=== PATIENT | male | born 1950 | race Asian ===

== ENCOUNTER 2021-03-04 10:48 | Emergency (ER) | payer MEDICARE, MEDICAID ==
[~2021-03-04] VITALS: Ht 152.4 cm; Wt 63.5 kg
[2021-03-04] MEDS ORDERED: TEMA15CA5 PO (10:53)
[2021-03-04] MEDS ORDERED: TOPUD PO (10:53)
[2021-03-04 10:54] VITALS: BP 134/86
[2021-03-04] MEDS ORDERED: ACETAMINOPHEN 325MG TABLET PO STA (12:22)
[2021-03-04] MEDS ORDERED: VISCOUS LIDOCAINE 2% 15 ML UDC PO ONE (12:30)
[2021-03-04 13:25] LABS: BASOPHILS % 0.7 % (0.0-2.0); EOSINOPHILS % 0.5 % (0.0-5.0); HEMATOCRIT. 48.6 % (42.0-52.0); HEMOGLOBIN. 16.2 g/dL (14.0-18.0); LYMPHOCYTES % 23.8 % (20.0-50.0); MEAN CORPUSCULAR HEMOGLOBIN 31.1 pg (28.0-32.0); MEAN CORPUSCULAR VOLUME 93.5 fL (80.0-94.0); MEAN PLATELET VOLUME 8.5 fl (7.4-10.4); MONOCYTES % 9.8 % (2.0-8.0); NEUTROPHILS % 65.2 % (40.0-76.0); PLATELET 175 x1000/uL (130-400); RED CELL DISTRIBUTION WIDTH 14.2 % (11.6-14.6)
[2021-03-04 13:36] LABS: CHLORIDE 106 mEq/L (98-107)
== END 2021-03-04 18:25 ==
LOC: ER 11:19
DX: R07.89 Other chest pain (principal); R07.0 Pain in throat; F31.9 Bipolar disorder, unspecified; I10 Essential (primary) hypertension; F20.9 Schizophrenia, unspecified
CPT/HCPCS: 36415; 71045; 80053; 83880; 84484; 85025; 93005; 99285

== ENCOUNTER 2021-11-10 16:28 | Inpatient (IN) | payer MEDICARE, MEDICAID ==
[~2021-11-10] VITALS: Ht 167.6 cm; Wt 75.7 kg
[~2021-11-10 16:28] MED LIST: TEMA15CA5 PO; TOPUD PO
[2021-11-10] MEDS ORDERED: ONDANSETRON HCL 4MG/2ML INJ IV STA (17:35)
[2021-11-10] MEDS ORDERED: MORPHINE SULFATE 4 MG/ML CPJ (NOT FOR IM USE) IV STA (17:35)
[2021-11-10] MEDS ORDERED: NITROGLYCERIN OINT 1GM/INCH UDPKT TD ONE (17:45)
[2021-11-10] MEDS ORDERED: ASPIRIN 81MG TABLET PO ONE (17:45)
[2021-11-10 18:53] LABS: EOSINOPHILS % 1.9 % (0.0-5.0); HEMATOCRIT. 43.6 % (42.0-52.0); HEMOGLOBIN. 14.6 g/dL (14.0-18.0); LYMPHOCYTES % 35.9 % (20.0-50.0); MEAN CORPUSCULAR HEMOGLOBIN 30.2 pg (28.0-32.0); MEAN CORPUSCULAR VOLUME 90.1 fL (80.0-94.0); MEAN PLATELET VOLUME 8.6 fl (7.4-10.4); MONOCYTES % 11.9 % (2.0-8.0); NEUTROPHILS % 49.3 % (40.0-76.0); PLATELET 186 x1000/uL (130-400); RED BLOOD CELL COUNT 4.84 mill/uL (4.7-6.1); RED CELL DISTRIBUTION WIDTH 13.9 % (11.6-14.6)
[2021-11-10] MEDS ORDERED: SODIUM CHLORIDE 0.9% 500 ML IV ONE (19:00)
[2021-11-10 19:03] LABS: CHLORIDE 104 mEq/L (98-107)
[2021-11-10 19:08] LABS: *AMPHETAMINES SCREEN URINE NEGATIVE (NEGATIVE); *BARBITURATES SCREEN URINE NEGATIVE (NEGATIVE); *BENZODIAZEPINES SCREEN URINE NEGATIVE (NEGATIVE); *COCAINE SCREEN URINE NEGATIVE (NEGATIVE); CANNABINOID URINE SCREEN NEGATIVE (NEGATIVE); METHADONE URINE SCREEN NEGATIVE (NEGATIVE); OPIATES URINE SCREEN NEGATIVE (NEGATIVE); PHENCYCLIDINE URINE SCREEN NEGATIVE (NEGATIVE)
[2021-11-10 19:26] LABS: ETHANOL BLOOD < 10 mg/dL
[2021-11-11] MEDS: ASPIRIN 81MG EC TABLET PO SCH (08:37)
[2021-11-11] MEDS: ENOXAPARIN 40MG/0.4ML SYR SUBCUT SCH (08:38)
[2021-11-11] MEDS: NITROGLYCERIN OINT 1GM/INCH UDPKT TD SCH ×3 (08:39→22:00)
[2021-11-11 11:20] VITALS: BP 135/66
[2021-11-11 11:59] LABS: BASOPHILS % 0.3 % (0.0-2.0); EOSINOPHILS % 0.2 % (0.0-5.0); HEMATOCRIT. 47.9 % (42.0-52.0); LYMPHOCYTES % 16.3 % (20.0-50.0); MEAN CORPUSCULAR HEMOGLOBIN 30.2 pg (28.0-32.0); MEAN CORPUSCULAR VOLUME 90.3 fL (80.0-94.0); MEAN PLATELET VOLUME 8.8 fl (7.4-10.4); MONOCYTES % 8.2 % (2.0-8.0); PLATELET 210 x1000/uL (130-400); RED CELL DISTRIBUTION WIDTH 14.3 % (11.6-14.6)
[2021-11-11 12:00] VITALS: BP 133/85
[2021-11-11 12:06] LABS: CHLORIDE 102 mEq/L (98-107)
[2021-11-11 12:16] LABS: HDL CHOLESTEROL 57 mg/dL (40-59); LDL CHOLESTEROL 67 mg/dL (5-100)
[2021-11-11] MEDS ORDERED: ABIL5 PO (13:33)
[2021-11-11] MEDS ORDERED: ATOR20TA PO (13:33)
[2021-11-11] MEDS ORDERED: AMLO10TA4 PO (13:36)
[2021-11-11] MEDS ORDERED: DEPER5 PO (13:36)
[2021-11-11] MEDS ORDERED: ACETAMINOPHEN 325MG TABLET PO PRN (14:30)
[2021-11-11] MEDS ORDERED: NITROGLYCERIN 0.4MG TABLET SL SL PRN (14:30)
[2021-11-11 15:59] VITALS: BP 130/84
[2021-11-11 20:00] VITALS: BP 141/86
[2021-11-11] MEDS: ARIPIPRAZOLE 5MG TABLET PO SCH (21:03)
[2021-11-11] MEDS: DIVALPROEX SODIUM 500MG ER TABLET PO SCH (21:03)
[2021-11-11] MEDS: ATORVASTATIN CALCIUM 40MG TABLET PO SCH (21:03)
[2021-11-12] VITALS: BP 117/68
[2021-11-12] MEDS: NITROGLYCERIN OINT 1GM/INCH UDPKT TD SCH (06:00)
[2021-11-12 06:49] LABS: CHLORIDE 103 mEq/L (98-107)
[2021-11-12 07:30] LABS: BASOPHILS % 0.8 % (0.0-2.0); EOSINOPHILS % 1.5 % (0.0-5.0); HEMATOCRIT. 42.3 % (42.0-52.0); HEMOGLOBIN. 14.4 g/dL (14.0-18.0); LYMPHOCYTES % 32.6 % (20.0-50.0); MEAN CORPUSCULAR HEMOGLOBIN 30.5 pg (28.0-32.0); MEAN CORPUSCULAR VOLUME 89.6 fL (80.0-94.0); MONOCYTES % 14.6 % (2.0-8.0); NEUTROPHILS % 50.5 % (40.0-76.0); PLATELET 177 x1000/uL (130-400); RED BLOOD CELL COUNT 4.72 mill/uL (4.7-6.1); RED CELL DISTRIBUTION WIDTH 13.8 % (11.6-14.6)
[2021-11-12 08:00] VITALS: BP 132/81
[2021-11-12] MEDS: DOCUSATE SODIUM 100MG CAPSULE PO SCH (09:00)
[2021-11-12] MEDS: ENOXAPARIN 40MG/0.4ML SYR SUBCUT SCH (09:09)
[2021-11-12] MEDS: AMLODIPINE 10MG TABLET PO SCH (09:10)
[2021-11-12] MEDS: ASPIRIN 81MG EC TABLET PO SCH (09:10)
[2021-11-12 12:00] VITALS: BP 130/71
[2021-11-12 16:00] VITALS: BP 134/77
[2021-11-12 20:00] VITALS: BP 106/65
[2021-11-12] MEDS: DIVALPROEX SODIUM 500MG ER TABLET PO SCH (20:44)
[2021-11-12] MEDS: ARIPIPRAZOLE 5MG TABLET PO SCH (20:44)
[2021-11-12] MEDS: ATORVASTATIN CALCIUM 40MG TABLET PO SCH (20:44)
[2021-11-12] MEDS ORDERED: NITROGLYCERIN OINT 1GM/INCH UDPKT TD SCH (21:00)
[2021-11-13 00:11] VITALS: BP 103/70
[2021-11-13 04:00] VITALS: BP 163/70
[2021-11-13 05:33] VITALS: BP 163/70
[2021-11-13 06:32] LABS: BASOPHILS % 0.9 % (0.0-2.0); EOSINOPHILS % 2.2 % (0.0-5.0); HEMATOCRIT. 42.3 % (42.0-52.0); HEMOGLOBIN. 14.5 g/dL (14.0-18.0); LYMPHOCYTES % 37.9 % (20.0-50.0); MEAN CORPUSCULAR HEMOGLOBIN 30.7 pg (28.0-32.0); MEAN CORPUSCULAR VOLUME 89.5 fL (80.0-94.0); MONOCYTES % 12.9 % (2.0-8.0); NEUTROPHILS % 46.1 % (40.0-76.0); PLATELET 168 x1000/uL (130-400); RED BLOOD CELL COUNT 4.73 mill/uL (4.7-6.1); RED CELL DISTRIBUTION WIDTH 13.9 % (11.6-14.6)
[2021-11-13 07:11] LABS: CHLORIDE 103 mEq/L (98-107)
[2021-11-13 08:00] VITALS: BP 138/77
[2021-11-13] MEDS: ENOXAPARIN 40MG/0.4ML SYR SUBCUT SCH (08:14)
[2021-11-13] MEDS: ASPIRIN 81MG EC TABLET PO SCH (08:15)
[2021-11-13] MEDS: DOCUSATE SODIUM 100MG CAPSULE PO SCH ×2 (08:15→08:19)
[2021-11-13] MEDS: AMLODIPINE 10MG TABLET PO SCH (08:15)
[2021-11-13] MEDS ORDERED: ISOSORBIDE MONONITRATE 30MG TABLET SR 24HR PO SCH (09:00)
[2021-11-13 12:00] VITALS: BP 105/63
[2021-11-13 12:39] VITALS: BP 105/63
== END 2021-11-13 14:52 | DRG 206 ==
LOC: ER 16:28 → MICUSO 17:13 → EDBEDREQ 17:20 → 8WST 11-11 07:33
PROVIDERS: ADMIT Internal Medicine; ATTEND Internal Medicine
DX: M94.0 Chondrocostal junction syndrome [Tietze] (principal); R07.9 Chest pain, unspecified; F31.9 Bipolar disorder, unspecified; Z20.822 Contact with and (suspected) exposure to COVID-19; J44.9 Chronic obstructive pulmonary disease, unspecified; E78.5 Hyperlipidemia, unspecified; Z82.49 Family history of ischemic heart disease and other diseases of the circulatory system; F20.9 Schizophrenia, unspecified; I25.10 Atherosclerotic heart disease of native coronary artery without angina pectoris; I25.2 Old myocardial infarction; R00.1 Bradycardia, unspecified; I51.89 Other ill-defined heart diseases; I10 Essential (primary) hypertension
CPT/HCPCS: 36415; 71045; 80048; 80053; 80061; 80305; 80320; 83735; 83880; 84443; 84484; 85025; 87426; 93005; 93306; 99285; J1650; J2270; J2405; J7040; G0480